=== PATIENT | male | born 1980 ===

== ENCOUNTER 2017-05-16 02:45 | Emergency (ER) | payer SELFPAY ==
[2017-05-16] MEDS ORDERED: BOOSTRIX IM ONE (03:01)
[2017-05-16] MEDS ORDERED: ceFAZolin 2 GM in NACL 0.9% 100 ML IV ONE (03:01)
[2017-05-16] MEDS ORDERED: NACL 0.9% 1000 ML 1,000 ML IV ONE (03:01)
--- NOTE | 2017-05-16 03:11 | Emergency Department Report ---
HPI - General Time Seen by Provider: 05/16/17 03:01 - HPI HPI: This is a 37-year-old male who presents to the emergency department, dropped off by friends, with a complaint of a laceration to the right hand and the right wrist with a large amount of bleeding and concern for it being arterial bleed. The patient admits to drinking heavily this evening and had a ground- level fall and believes that he cut his hand on glass. He is unsure where the glass came from as he says it was dark outside. He denies any past medical history. Unknown last time he had a tetanus vaccination. ED Review of Systems ROS: Stated complaint: RIGTH WRIST BLEED Other details as noted in HPI Comment: All other systems reviewed and negative Constitutional: denies: chills, fever Eyes: denies: eye pain, eye discharge, vision change ENT: denies: ear pain, throat pain Respiratory: denies: cough, shortness of breath, wheezing Cardiovascular: denies: chest pain, palpitations Gastrointestinal: denies: abdominal pain, nausea, diarrhea Genitourinary: denies: urgency, dysuria Musculoskeletal: arthralgia. denies: back pain Skin: other (laceration). denies: rash, lesions Neurological: denies: headache, weakness, paresthesias Physical Exam - Physical Exam Physical Exam: GENERAL: The patient is well-developed well-nourished. Patient appears intoxicated. HENT: Normocephalic. Atraumatic. Patient has moist mucous membranes. EYES: Extraocular motions are intact. Pupils equal reactive to light bilaterally. NECK: Supple. Trachea is midline. CHEST/LUNGS: Clear to auscultation. There is no respiratory distress noted. HEART/CARDIOVASCULAR: Regular. There is no tachycardia. There is no gallop rub or murmur. ABDOMEN: Abdomen is soft, nontender. Patient has normal bowel sounds. There is no abdominal distention. SKIN: There is a large gaping laceration to the base of the right thumb that is about 5 cm in length and almost 2 cm gapped. It appears deep and may involve underlying muscles of the thenar eminence. There is also a laceration to the right volar wrist and or distal forearm in the direction of distal to proximal that is about 3 cm in length with a 1 cm gap. There is some pulsatile bleeding seen from both of these areas concerning for an arterial injury. NEURO: The patient is awake, alert, and oriented. The patient is cooperative. The patient has no focal neurologic deficits. The patient has normal speech and gait. MUSCULOSKELETAL: There is some mild tenderness to palpation to the right palm and wrist per the patient has lacerations. There is still a palpable right radial pulse distal to the laceration of the wrist. Cap refill less than 3 seconds. He still appears neurovascularly intact to the right hand and wrist. ED Course - Consultations Consultation #1: The patient has been accepted for transfer to [facility] by the trauma attending, Dr. Prabhakar. 05/16/17 03:17 ED Medical Decision Making - Lab Data Result diagrams: 05/16/17 03:30 05/16/17 03:30 - Radiology Data Radiology results: image reviewed interpreted by me: X-ray of the right hand and wrist does not show any fracture, dislocation or foreign body. - Medical Decision Making This is a 37-year-old male who presents intoxicated complaining of a fall an accidental laceration of the right hand at the base of the thumb and another to the wrist. The patient presents covered in blood as these lacerations appear to have caused a arterial injury and/or bleed. The patient had the area covered and Coban which appeared to be helping tamponade the bleeding. A manual blood pressure cuff was placed proximal to the wounds and inflated to about 300 mg mercury to act as a trauma tourniquet. At this point the Coban was removed so the wounds could be evaluated. The wounds appear very large, gapped and deep. We slowly decreased the pressure of the tourniquet/cuff and you could see the hematoma starting to move and the blood starting to become pulsatile concerning for an arterial bleed. At this point the tourniquet was reinflated and the area was covered with Coban. The patient received a booster of tetanus. He received clindamycin antibiotics for his open wounds. The patient appeared to need transfer to a hospital that had either trauma or hand surgery as he may need more of a detailed repair of the hand itself but also may need repair of the lacerated arteries. We do not have a orthopedic hand surgeon, a trauma team so the patient was accepted by Dr. Prabhakar, trauma attending at [facility]. - Differential Diagnosis arterial laceration, radial laceration, laceration of muscle, fracture, dis Critical Care Time: No Critical care attestation.: If time is entered above; I have spent that time in minutes in the direct care of this critically ill patient, excluding procedure time. ED Disposition Clinical Impression: Laceration of radial artery at wrist and hand level of left arm, initial encounter Laceration of wrist with complication Qualifiers: Encounter type: initial encounter Laterality: right Qualified Code(s): S61.511A - Laceration without foreign body of right wrist, initial encounter Disposition: DC/TX-70 ANOTHER TYPE HLTHCARE Is pt being admited?: No Condition: Fair Referrals: PRIMARY CARE, [Primary Care Provider] - 3-5 Days Time of Disposition: 04:51
[2017-05-16 03:27] VITALS: BP 100/65
[2017-05-16] MEDS ORDERED: CLEOCIN 900 MG/50 mL 900 MG/50 ML BAG IV ONE (03:36)
[2017-05-16] MEDS ORDERED: NS IV ONE (03:37)
[2017-05-16] MEDS ORDERED: ANCEF IV ONE (03:37)
[2017-05-16 04:35] LABS: Anion Gap 30 mmol/L; BUN/Creatinine Ratio 11; Blood Urea Nitrogen 11 mg/dL (9-20); Calcium 7.9 mg/dL (8.4-10.2); Carbon Dioxide 17 mmol/L (22-30); Chloride 98.6 mmol/L (98-107); Glucose 120 mg/dL (75-100); Potassium 3.5 mmol/L (3.6-5.0); Sodium 142 mmol/L (137-145)
[2017-05-16 04:39] LABS: Basophils % (Auto) 0.8 % (0.0-1.8); Eosinophils % (Auto) 1.4 % (0.0-4.3); Hematocrit 41.3 % (35.5-45.6); Hemoglobin 14.4 gm/dl (11.8-15.2); Mean Corpuscular HGB Conc 35 % (32-34); Mean Corpuscular Hemoglobin 34 pg (28-32); Mean Corpuscular Volume 97 fl (84-94); Platelet Count 263 K/mm3 (140-440); Red Blood Count 4.26 M/mm3 (3.65-5.03); Red Cell Distribution Width 12.6 % (13.2-15.2); White Blood Count 7.7 K/mm3 (4.5-11.0)
--- NOTE | 2017-05-16 07:53 | XRay Report ---
RIGHT HAND, 3 views: History: Hand laceration with glass, injury. 3 nonstandard views of the right hand and wrist are presented. There is bandage material anterior to the wrist region. No acute osseous findings, joint pathology or radiopaque foreign body is detected on x-ray. IMPRESSION: Limited exam. Soft tissue injury. No acute bony injury or radiopaque foreign body detected on x-ray.
== END 2017-05-16 03:45 | disposition other institution (70) ==
LOC: ED 02:45
DX: S61.511A Laceration without foreign body of right wrist, initial encounter (principal); W18.30XA Fall on same level, unspecified, initial encounter; Y93.89 Activity, other specified; Y92.89 Other specified places as the place of occurrence of the external cause; Y99.8 Other external cause status
CPT/HCPCS: 36415; 73130; 80048; 85025; 86850; 86900; 86901; 90471; 90715; 96365; 96368; 99285; J0690; J7030

== ENCOUNTER 2020-11-23 22:15 | Emergency (ER) | payer SELFPAY ==
[2020-11-23 23:53] VITALS: BP 148/97
== END 2020-11-24 05:30 | disposition left against medical advice (07) ==
LOC: ED 22:15
DX: R04.0 Epistaxis (principal); Z53.21 Procedure and treatment not carried out due to patient leaving prior to being seen by health care provider

== ENCOUNTER 2021-09-29 22:32 | Emergency (ER) | payer SELFPAY ==
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
--- NOTE | 2021-09-29 23:24 | Cat Scan Report ---
CT HEAD WITHOUT CONTRAST INDICATION / CLINICAL INFORMATION: head trauma, laceration. TECHNIQUE: All CT scans at this location are performed using CT dose reduction for ALARA by means of automated exposure control. COMPARISON: None available. FINDINGS: BRAIN PARENCHYMA: No acute intracranial hemorrhage. No evidence of recent infarct. No mass effect or midline shift. VENTRICULAR SYSTEM/EXTRA-AXIAL SPACES: Ventricles are normal for age. No extra-axial fluid collection . ORBITS: Normal as visualized. SKELETAL SYSTEM/SOFT TISSUES: Right posterolateral scalp soft tissue swelling with hematoma. PARANASAL SINUSES/MASTOID AIR CELLS: Mild mucosal thickening and secretions within the left maxillary sinus. No air-fluid levels. Other paranasal sinuses and mastoid air cells are clear. ADDITIONAL FINDINGS: None. IMPRESSION: 1. No acute intracranial abnormality. 2. Right posterolateral scalp soft tissue swelling with hematoma. Calvarium is intact. Signer Name: Olayinka Jung MD Signed: 09/29/2021 11:19 PM Workstation Name: [id number]
--- NOTE | 2021-09-29 23:24 | Cat Scan Report ---
CT CERVICAL SPINE WITHOUT CONTRAST INDICATION / CLINICAL INFORMATION: head trauma, laceration. TECHNIQUE: Axial CT images were obtained through the cervical spine. Sagittal and coronal reformatted images were produced. All CT scans at this location are performed using CT dose reduction for ALARA by means of automated exposure control. COMPARISON: None available. FINDINGS: Alignment: Normal. No acute subluxation. Geographic Bone Lesion: None present. Fracture: No acute fracture. Degenerative Changes: Multilevel cervical spondylosis greatest at C5-C6. No significant central canal narrowing. Epidural Hematoma: Not present. Prevertebral / Paraspinal Soft Tissues: Unremarkable. IMPRESSION: No acute osseous findings in the cervical spine. Signer Name: Olayinka Jung MD Signed: 09/29/2021 11:19 PM Workstation Name: [id number]
[2021-09-29] MEDS ORDERED: LIDOCAINE 2%/EPINEPHRINE 1:100,000 VIAL (20 ML) INFILTRATI ONE (23:51)
[2021-09-29 23:54] LABS: Alanine Aminotransferase 121 units/L (7-56); Albumin 4.5 g/dL (3.9-5); Blood Urea Nitrogen 9 mg/dL (9-20); Calcium 8.7 mg/dL (8.4-10.2); Hemolysis Index 2
[2021-09-30 00:02] LABS: BUN/Creatinine Ratio 13
[2021-09-30] MEDS ORDERED: HYDROGEN PEROXIDE 118 ML SOLUTION TP ONE (00:02)
[2021-09-30] MEDS ORDERED: LIDOCAINE 1%/EPINEPHRINE 1:100,000 VIAL (20 ML) INFILTRATI NR (00:15)
[2021-09-30 00:29] LABS: Basophils # (Auto) 0.1 K/mm3 (0.0-0.1); Basophils % (Auto) 1.5 % (0.0-1.8); Eosinophils # (Auto) 0.1 K/mm3 (0.0-0.4); Eosinophils % (Auto) 1.9 % (0.0-4.3); Hematocrit 44.7 % (35.5-45.6); Lymphocytes # (Auto) 1.9 K/mm3 (1.2-5.4); Lymphocytes % (Auto) 42.4 % (13.4-35.0); Mean Corpuscular HGB Conc 33 % (32-34); Mean Corpuscular Volume 100 fl (84-94); Monocytes # (Auto) 0.4 K/mm3 (0.0-0.8); Monocytes % (Auto) 8.2 % (0.0-7.3); Platelet Count 176 K/mm3 (140-440); Red Blood Count 4.46 M/mm3 (3.65-5.03); Red Cell Distribution Width 13.5 % (13.2-15.2)
[2021-09-30 00:34] LABS: INR 0.97 (0.87-1.13)
[2021-09-30 00:35] LABS: Partial Thromboplastin Time 28.2 Sec. (24.2-36.6)
[2021-09-30] MEDS ORDERED: SODIUM CHLORIDE 0.9% 1000 ML 1,000 ML IV ONE ×2 (05:22→06:51)
[2021-09-30 13:10] VITALS: BP 103/67
== END 2021-09-30 13:10 | disposition home or self-care (01) ==
LOC: ED 22:32
DX: S01.01XA Laceration without foreign body of scalp, initial encounter (principal); S09.90XA Unspecified injury of head, initial encounter; F10.129 Alcohol abuse with intoxication, unspecified; I10 Essential (primary) hypertension; Z88.0 Allergy status to penicillin; X58.XXXA Exposure to other specified factors, initial encounter; Y93.89 Activity, other specified; Y92.89 Other specified places as the place of occurrence of the external cause; Y99.8 Other external cause status
CPT/HCPCS: 12002; 36415; 70450; 72125; 80053; 85025; 85610; 85730; 86850; 86900; 86901; 96360; 96361; 99284; J3490; J7030; 80320; Q0162; G0480